=== PATIENT | female | born 1960 | race American Indian/Alaskan Native ===

== ENCOUNTER 2016-11-12 06:39 | Day surgery (SDC) | payer OTHER ==
[2016-11-12] MEDS ORDERED: Lactated Ringers 1,000 ML IV SCH (07:00)
[2016-11-12] MEDS ORDERED: Sodium Chloride 0.9% 10 ML Syringe FLUSH PRN (07:00)
[2016-11-12] MEDS ORDERED: Propofol 200 MG/20 ML SDV IV ONE (08:00)
--- NOTE | 2016-11-12 08:27 | PCM.OPNOTE ---
- General Post-Op/Procedure Note Date of Surgery/Procedure: 11/12/16 Operative Procedure(s): c scope Findings: asc. colon polyp internal hemorrhoids Pre Op Diagnosis: bleeding per rectum Post-Op Diagnosis: asc. colon polyp. internal hemorrhoids Anesthesia Technique: TRAVIS Primary Surgeon: Jimenez Poe Anesthesia Provider: Jeanmarie Mejias Pathology: colon polyp Complications: None Condition: Good Free Text/Narrative:: see dictation
--- NOTE | 2016-11-12 09:22 | OR ---
DATE OF OPERATION: 11/12/2016 SURGEON: Jimenez Poe MD PROCEDURE PERFORMED: Colonoscopy with cold forceps biopsy. PREOPERATIVE DIAGNOSIS: Bright red blood per rectum. POSTOPERATIVE DIAGNOSIS: Internal hemorrhoids and ascending colon polyp. INDICATIONS FOR PROCEDURE: This is a 56-year-old white female, who is referred with the above-mentioned complaints. She was offered and accepted colonoscopy. DESCRIPTION OF OPERATION: After an excellent IV sedation was administered, digital rectal exam was performed. No marked abnormality was noted. The flexible colonoscope was inserted and advanced to the cecum without difficulty. The prep was excellent. The following findings were noted. Ascending colon, a small 4 mm polyp, biopsied with cold biopsy forceps and sent for permanent. Transverse colon, unremarkable. Descending colon, unremarkable. Sigmoid and rectum unremarkable. The scope was retroflexed at the anus, and she does have internal hemorrhoids, which appeared to be the cause of her bleeding. The colon was deflated, as the scope was removed. The patient tolerated the procedure well and was taken to recovery room in good condition. /[id number] /NICL
[2016-11-12 09:27] VITALS: BP 121/74
== END 2016-11-12 09:56 | disposition home or self-care (01) ==
LOC: FB.SDS 06:39
PROVIDERS: ATTEND Surgery
DX: K64.8 Other hemorrhoids (principal); D12.2 Benign neoplasm of ascending colon; E78.4 Other hyperlipidemia; K21.9 Gastro-esophageal reflux disease without esophagitis; E11.9 Type 2 diabetes mellitus without complications; I51.9 Heart disease, unspecified; Z87.891 Personal history of nicotine dependence; Z79.84 Long term (current) use of oral hypoglycemic drugs; Z79.899 Other long term (current) drug therapy; Z88.0 Allergy status to penicillin; Z91.040 Latex allergy status; Z88.8 Allergy status to other drugs, medicaments and biological substances
CPT/HCPCS: 45380; 82962; 88305; J2704; J7120

== ENCOUNTER 2017-01-30 19:58 | Emergency (ER) | payer OTHER ==
[2017-01-30] MEDS ORDERED: methylPREDNISolone Sodium Succinate 125 MG/2 ML SDV IM ONE (20:37)
[2017-01-30] MEDS ORDERED: diphenhydrAMINE 50 MG/ML SDV IM ONE (20:37)
[2017-01-30 20:40] VITALS: BP 153/67
--- NOTE | 2017-01-31 01:22 | ER ---
DATE SEEN: 01/30/2017 HISTORY OF PRESENT ILLNESS: The patient is a 56-year-old female who says she was at the barber about 4 hours ago then she got bit by an insect. It is unclear where the bite was or what the insect was, but she developed swelling around her face. She has never had a reaction response like this in the past. She does not have allergies environmentally or to insect bites. She denies any shortness of breath or any difficulty swallowing. Did take [id number] antihistamine, which seemed to help her little bit. ALLERGIES: Penicillin, latex. MEDICATIONS: 1. Estrogen. 2. Flexeril. 3. Plavix. 4. Aspirin. 5. Metoprolol. 6. Cozaar. 7. Glucotrol. 8. Atorvastatin. 9. Norvasc. 10.Glucophage. PAST MEDICAL HISTORY: Diabetes, hypertension. REVIEW OF SYSTEMS: CONSTITUTIONAL: No fever. RESPIRATORY: No shortness of breath. PHYSICAL EXAMINATION: VITAL SIGNS: Temp 36.8, pulse 76, blood pressure 115/67, respiratory rate 18, 99% on room air. GENERAL: She is in no apparent acute distress. HEENT: TMs are clear. Pupils are equal, round, and reactive to light. Extraocular motions intact. Oropharyngeal region is clear. NECK: Supple. No lymphadenopathy. She does have some puffiness in her maxillary region. LUNGS: Clear to auscultation. HEART: Regular rate and rhythm. ABDOMEN: Soft. EMERGENCY DEPARTMENT COURSE: Benadryl 50 mg IM, Solu-Medrol 125 mg IM. ASSESSMENT: Potential allergic reaction. PLAN: Continue antihistamine for the next 7 days, avoid any new exposures. /[id number] RERE/EFREN
== END 2017-01-30 20:55 | disposition home or self-care (01) ==
LOC: FB.ED 19:58
DX: T78.40XA Allergy, unspecified, initial encounter (principal); I10 Essential (primary) hypertension; E11.9 Type 2 diabetes mellitus without complications; Z88.0 Allergy status to penicillin; Z91.040 Latex allergy status
CPT/HCPCS: 96372; 99282; J1200; J2930

== ENCOUNTER 2017-02-08 06:58 | Emergency (ER) | payer OTHER ==
--- NOTE | 2017-02-08 07:33 | EDM.PDOC ---
ED HPI GENERAL MEDICAL PROBLEM - General Chief Complaint: Chest Pain Stated Complaint: CHEST PAIN Time Seen by Provider: 02/08/17 07:00 Source of Information: Reports: Patient History Limitations: Reports: No Limitations - History of Present Illness INITIAL COMMENTS - FREE TEXT/NARRATIVE: c/o intermittent CP x 11h since 8 PM last night has had a few seconds of sharp left upper chest pain every 15 min x last 11h, slept 5h last night, no radiation, no n/v, no sob, not associated with activity , otherwise feels fine smoked 1 ppd until 2y ago had SOB and CP with exertion 1y ago and had EST 12/06 with placement of stents x 4, denies [place], taking her meds PCP Dr Mistry, cardiology Jj DALE in [place] with [facility], last seen by Carlos 2w ago, Plavix stopped 2w ago EKG today with LVH, SR 65, ID [id number], ST flattening in V6, I, AVL chest- left Pain Score (Numeric/FACES): 8 - Related Data Allergies Allergy/AdvReac Type Severity Reaction Status Date / Time Penicillins Allergy Unknown unknown Verified 02/08/17 07:24 Latex, Natural Rubber Allergy Hives Verified 02/08/17 07:24 Home Meds: Home Meds Acetaminophen [Acetaminophen Extra Strength] 500 mg PO DAILY PRN 11/11/16 [ History] metFORMIN [Glucophage] 1,000 mg PO BIDMEALS 11/11/16 [History] Aspirin [Halfprin] 81 mg PO DAILY 11/12/16 [History] Estrogen,Con/M-Progest Acet [Premphase 0.625-5 MG] 1 tab PO DAILY 11/12/16 [ History] Losartan [Cozaar] 100 mg PO DAILY 11/12/16 [History] Metoprolol Tartrate 12.5 mg PO DAILY 11/12/16 [History] amLODIPine [Norvasc] 2.5 mg PO DAILY 11/12/16 [History] atorvaSTATin Calcium [Atorvastatin Calcium] 80 mg PO DAILY 11/12/16 [History] glipiZIDE [Glucotrol] 5 mg PO DAILY 11/12/16 [History] Clopidogrel [Plavix] 75 mg PO DAILY 02/08/17 [History] Past Medical History Cardiovascular History: Reports: Stents Gastrointestinal History: Reports: GERD 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: Endocrine/Metabolic History: Reports: Diabetes, Type II, Obesity/BMI 30+ Social & Family History - Tobacco Use Smoking Status *Q: Never Smoker Used Tobacco, but Quit: Yes Month Tobacco Last Used: 1 1/2 YEARS AGO Second Hand Smoke Exposure: No - Caffeine Use Caffeine Use: Reports: Coffee, Soda - Recreational Drug Use Recreational Drug Use: No ED ROS GENERAL - Review of Systems Review Of Systems: See Below Constitutional: Reports: No Symptoms HEENT: Reports: No Symptoms Respiratory: Reports: No Symptoms Cardiovascular: Reports: Chest Pain Endocrine: Reports: No Symptoms GI/Abdominal: Reports: No Symptoms : Reports: No Symptoms Musculoskeletal: Reports: No Symptoms Skin: Reports: No Symptoms Neurological: Reports: No Symptoms Psychiatric: Reports: No Symptoms Hematologic/Lymphatic: Reports: No Symptoms Immunologic: Reports: No Symptoms ED EXAM, GENERAL - Physical Exam Exam: See Below Exam Limited By: No Limitations General Appearance: Alert, WD/WN, No Apparent Distress Ears: Normal External Exam, Hearing Grossly Normal Ear Exam: Bilateral Ear: Auricle Normal Nose: Normal Inspection, Normal Mucosa, No Blood Throat/Mouth: Normal Inspection, Normal Lips, Normal Voice, No Airway Compromise Head: Atraumatic, Normocephalic Neck: Normal Inspection, Supple, Non-Tender, Full Range of Motion Respiratory/Chest: No Respiratory Distress, Lungs Clear, Normal Breath Sounds, No Accessory Muscle Use, Chest Non-Tender Cardiovascular: Regular Rate, Rhythm, No Edema, No Gallop, No JVD, No Rub, Other (2/6 DALIA at LSB) GI/Abdominal: Soft, Non-Tender, No Organomegaly, No Distention, No Mass Back Exam: Normal Inspection, Full Range of Motion, NT Extremities: Normal Inspection, Normal Range of Motion, Non-Tender, No Pedal Edema, Other (turgor wnl) Neurological: Alert, Oriented, CN II-XII Intact, Normal Cognition, No Motor/ Sensory Deficits Psychiatric: Normal Affect, Normal Mood Skin Exam: Warm, Dry, Intact, Normal Color, No Rash Lymphatic: No Adenopathy Course - Vital Signs Last Recorded V/S: Last Vital Signs Temp 36.6 C 02/08/17 07:00 Pulse 67 02/08/17 07:00 Resp 15 02/08/17 08:30 BP 135/65 02/08/17 08:30 Pulse Ox 100 02/08/17 08:30 - Orders/Labs/Meds Orders: Active Orders 24 hr Category Date Time Status Chest 2V [CR] Stat Exams 02/08/17 07:27 Taken EKG 12 Lead [EK] Routine Ther 02/08/17 07:00 Ordered Labs: Laboratory Tests 02/08/17 02/08/17 02/08/17 Range/Units 07:34 07:34 07:34 WBC 5.7 (4.5-12.0) X10-3/uL RBC 4.11 (3.23-5.20) x10(6)uL Hgb 12.5 (11.5-15.5) g/dL Hct 36.8 (30.0-51.3) % MCV 89.6 (80-96) fL MCH 30.3 (27.7-33.6) pg MCHC 33.9 (32.2-35.4) g/dL RDW 13.5 (11.5-15.5) % Plt Count 198 (125-369) X10(3)uL MPV 8.1 (7.4-10.4) fL Neut % (Auto) 61.9 (46-82) % Lymph % (Auto) 27.0 (13-37) % [place] % (Auto) 5.5 (4-12) % Eos % (Auto) 5 (1.0-5.0) % Baso % (Auto) 1 (0-2) % Neut # (Auto) 3.6 (1.6-8.3) # Lymph # (Auto) 1.5 (0.6-5.0) # [place] # (Auto) 0.3 (0.0-1.3) # Eos # (Auto) 0.3 (0.0-0.8) # Baso # (Auto) 0.0 (0.0-0.2) # Sodium 140 (135-145) mmol/L Potassium 4.1 (3.5-5.3) mmol/L Chloride 107 (100-110) mmol/L Carbon Dioxide 25 (23-29) mmol/L BUN 11 (5-20) mg/dL Creatinine 0.6 (0.6-1.3) mg/dL Est Cr Clr Drug Dosing 95.68 mL/min Estimated GFR (MDRD) > 60 (>60) BUN/Creatinine Ratio 18.3 (9-20) Glucose 124 H (80-116) mg/dL Calcium 8.8 (8.6-10.2) mg/dL Total Bilirubin 0.5 (0.1-1.3) mg/dL AST 14 (5-27) IU/L ALT 15 (14-26) IU/L Alkaline Phosphatase 60 (56-112) IU/L Troponin I < 0.01 L (0.02-0.06) NG/ML B-Natriuretic Peptide (0-100) pg/mL Total Protein 6.9 (6.0-8.0) g/dL Albumin 3.8 (3.5-5.2) g/dL Globulin 3.1 g/dL Albumin/Globulin Ratio 1.2 / Range/Units 07:34 WBC (4.5-12.0) X10-3/uL RBC (3.23-5.20) x10(6)uL Hgb (11.5-15.5) g/dL Hct (30.0-51.3) % MCV (80-96) fL MCH (27.7-33.6) pg MCHC (32.2-35.4) g/dL RDW (11.5-15.5) % Plt Count (125-369) X10(3)uL MPV (7.4-10.4) fL Neut % (Auto) (46-82) % Lymph % (Auto) (13-37) % [place] % (Auto) (4-12) % Eos % (Auto) (1.0-5.0) % Baso % (Auto) (0-2) % Neut # (Auto) (1.6-8.3) # Lymph # (Auto) (0.6-5.0) # [place] # (Auto) (0.0-1.3) # Eos # (Auto) (0.0-0.8) # Baso # (Auto) (0.0-0.2) # Sodium (135-145) mmol/L Potassium (3.5-5.3) mmol/L Chloride (100-110) mmol/L Carbon Dioxide (23-29) mmol/L BUN (5-20) mg/dL Creatinine (0.6-1.3) mg/dL Est Cr Clr Drug Dosing mL/min Estimated GFR (MDRD) (>60) BUN/Creatinine Ratio (9-20) Glucose (80-116) mg/dL Calcium (8.6-10.2) mg/dL Total Bilirubin (0.1-1.3) mg/dL AST (5-27) IU/L ALT (14-26) IU/L Alkaline Phosphatase (56-112) IU/L Troponin I (0.02-0.06) NG/ML B-Natriuretic Peptide 8 (0-100) pg/mL Total Protein (6.0-8.0) g/dL Albumin (3.5-5.2) g/dL Globulin g/dL Albumin/Globulin Ratio - Re-Assessments/Exams Free Text/Narrative Re-Assessment/Exam: 02/08/17 09:23 09:23 d/w Dr Mazariegos technical education teacher workers compensation manager for [facility], he recommended a stress test today either locally or in [place], d/w Dr Yanez technical education teacher for [facility], he is not able to do EST at hospital altho did make arrangements to do one in the clinic at 1:15 PM this afternoon. Labs neg, pt sxs free in ED, pt and her sister agree to plan and will return to ED if sxs return. Departure - Departure Time of Disposition: 09:25 Disposition: Home, Self-Care 01 Condition: Good Clinical Impression: Chest pain of uncertain etiology Instructions: Exercise Stress Electrocardiogram, [id number] Referrals: Richa Mistry MD [Primary Care Provider] - Forms: ED Department Discharge Additional Instructions: Go to [facility] in [facility] at 1245 TODAY FOR STRESS TEST. Return to ED if chest pain gets worse. - Problem List & Annotations (1) Chest pain SNOMED Code(s): 22753848 Code(s): R07.9 - CHEST PAIN, UNSPECIFIED Status: Acute Current Visit: Yes - Problem List Review Problem List Initiated/Reviewed/Updated: Yes - My Orders Last 24 Hours: My Active Orders 02/08/17 07:00 EKG 12 Lead [EK] Routine 02/08/17 07:27 Chest 2V [CR] Stat - Assessment/Plan Last 24 Hours: My Active Orders 02/08/17 07:00 EKG 12 Lead [EK] Routine 02/08/17 07:27 Chest 2V [CR] Stat
[2017-02-08 09:38] VITALS: BP 149/68
--- NOTE | 2017-02-10 14:03 | CR ---
INDICATION: Chest pain. History of coronary artery disease. CHEST, PA AND LATERAL VIEWS: FINDINGS: No comparison imaging. There appears to be some scalloping or eventration of the dome of the right hemidiaphragm. The patient is of larger body habitus. There has been a previous cholecystectomy. As visualized, lungs and pleural spaces are clear. Heart size is at the upper limits of normal. No CHF. Mediastinal contours are otherwise normal. There is mild scoliosis deformity thoracic spine curved convex right. There is some generalized degenerative endplate change and spurring throughout the thoracic spine. There are mild compression deformities mid thoracic spine region, none of which look acute. IMPRESSION: No acute abnormality in the chest. MTDD
== END 2017-02-08 09:25 | disposition home or self-care (01) ==
LOC: FB.ED 06:58
DX: R07.9 Chest pain, unspecified (principal); K21.9 Gastro-esophageal reflux disease without esophagitis; E11.9 Type 2 diabetes mellitus without complications; E66.9 Obesity, unspecified; Z88.0 Allergy status to penicillin; Z91.040 Latex allergy status; Z79.899 Other long term (current) drug therapy
CPT/HCPCS: 36415; 71020; 80053; 83880; 84484; 85025; 93005; 99285

== ENCOUNTER 2019-12-13 20:22 | Emergency (ER) | payer OTHER ==
--- NOTE | 2019-12-13 20:59 | ER ---
DATE SEEN: 12/13/2019 CHIEF COMPLAINT: Foreign body, right ear. HISTORY OF PRESENT ILLNESS: A 59-year-old who complains that she had a piece of hearing aid stuck in her right ear. They tried to remove it at home, but with no success. This happened today. REVIEW OF SYSTEMS: All other systems noncontributory. PAST MEDICAL HISTORY: Hypertension. PHYSICAL EXAMINATION: GENERAL: Nontoxic. EARS: Right ear, there is a piece of foreign body, plastic, approximately 1 cm in size on the right canal. IMPRESSION: Foreign body, right ear. PLAN: I used an alligator forceps to remove it without difficulty. She was discharged with advice to hold off on another hearing aid or any foreign bodies in that ear for 24 hours. /[id number] LINDA/EFREN
[2019-12-13 22:12] VITALS: BP 157/76; PULSE 85
== END 2019-12-13 20:48 | disposition home or self-care (01) ==
LOC: FB.ED 20:22
DX: T16.1XXA Foreign body in right ear, initial encounter (principal); I10 Essential (primary) hypertension
CPT/HCPCS: 69200; 99282-25

== ENCOUNTER 2020-12-08 02:06 | Emergency (ER) | payer OTHER ==
--- NOTE | 2020-12-08 02:15 | EDM.PDOC ---
ED HPI GENERAL MEDICAL PROBLEM - General Stated Complaint: chest pain Time Seen by Provider: 12/08/20 02:13 Source of Information: Reports: Patient History Limitations: Reports: No Limitations - History of Present Illness INITIAL COMMENTS - FREE TEXT/NARRATIVE: 60 yo female with right sided chest pain since about 10 PM. [place] like indigestion,and slightly improved with tums and OTC PPI. No SOB. She has ah/o GERD,HTN,DM and CAD Right Upper Chest Pain Score (Numeric/FACES): 0 - Related Data Allergies Allergy/AdvReac Type Severity Reaction Status Date / Time Penicillins Allergy Unknown unknown Verified 12/13/19 22:09 Latex, Natural Rubber Allergy Hives Verified 12/13/19 22:09 Home Meds: Home Meds Acetaminophen [Acetaminophen Extra Strength] 500 mg PO DAILY PRN 11/11/16 [History] metFORMIN [Glucophage] 1,000 mg PO DAILY 11/11/16 [History] Aspirin [Halfprin] 81 mg PO DAILY 11/12/16 [History] Estrogen,Con/M-Progest Acet [Premphase 0.625-5 MG] 1 tab PO DAILY 11/12/16 [History] Losartan [Cozaar] 100 mg PO DAILY 11/12/16 [History] Metoprolol Tartrate 12.5 mg PO BID 11/12/16 [History] amLODIPine [Norvasc] 10 mg PO DAILY 11/12/16 [History] atorvaSTATin Calcium [Atorvastatin Calcium] 80 mg PO DAILY 11/12/16 [History] glipiZIDE [Glucotrol] 5 mg PO BID 11/12/16 [History] Magnesium Oxide 400 mg PO DAILY 12/08/20 [History] Multivitamin 1 tab PO DAILY 12/08/20 [History] Past Medical History Cardiovascular History: Reports: High Cholesterol, Hypertension, Stents Other Cardiovascular History: 4 heart stents. Respiratory History: Reports: Other (See Below) Other Respiratory History: former smoker since 14 years old, quit 4 years ago. 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 Social & Family History - Family History Cardiac: Reports: [place] - Caffeine Use Caffeine Use: Reports: Coffee ED ROS GENERAL - Review of Systems Review Of Systems: Comprehensive ROS is negative, except as noted in HPI. ED EXAM, GENERAL - Physical Exam Exam: See Below Exam Limited By: No Limitations General Appearance: Alert, WD/WN, No Apparent Distress Ears: Normal External Exam Nose: Normal Inspection Throat/Mouth: Normal Inspection Head: Atraumatic Neck: Normal Inspection Respiratory/Chest: No Respiratory Distress, Lungs Clear, No Accessory Muscle Use Cardiovascular: Normal Peripheral Pulses, Regular Rate, Rhythm, No Edema GI/Abdominal: Soft Back Exam: Normal Inspection Extremities: Normal Inspection Neurological: Alert, Oriented, CN II-XII Intact Psychiatric: Normal Affect Skin Exam: Warm Course - Vital Signs Last Recorded V/S: Last Vital Signs Temp 98.0 F 12/08/20 02:36 Pulse 75 12/08/20 04:00 Resp 18 12/08/20 04:00 BP 137/61 12/08/20 04:00 Pulse Ox 99 12/08/20 04:00 - Orders/Labs/Meds Labs: Laboratory Tests 12/08/20 12/08/20 12/08/20 Range/Units 02:18 02:18 02:18 WBC 8.1 (3.0-10.3) x10-3/uL RBC 4.28 (3.60-5.20) x10(6)uL Hgb 13.1 (11.4-15.5) g/dL Hct 39.3 (34.2-48.2) % MCV 91.9 (76.7-100.5) fL MCH 30.6 (23.9-33.9) pg MCHC 33.3 (31.9-34.8) g/dL RDW 13.7 (12.3-16.5) % Plt Count 221 (151-488) x10(3)uL MPV 8.1 (7.1-12.4) fL Neut % (Auto) 62.6 (30.8-76.2) % Lymph % (Auto) 25.5 (18.4-52.1) % [place] % (Auto) 7.2 (4.4-15.7) % Eos % (Auto) 4.0 (0.6-8.1) % Baso % (Auto) 0.7 (0.2-1.5) % Neut # (Auto) 5.1 (1.5-6.3) x10-3/uL Lymph # (Auto) 2.1 (1.0-4.4) x10-3/uL [place] # (Auto) 0.6 (0.3-1.0) x10-3/uL Eos # (Auto) 0.3 (0.0-0.8) x10-3/uL Baso # (Auto) 0.1 (0.0-0.1) x10-3/uL D-Dimer, Quantitative 0.70 H (0.0-0.59) mg/LFEU Sodium 142 (135-145) mmol/L Potassium 3.9 (3.5-5.3) mmol/L Chloride 105 (100-110) mmol/L Carbon Dioxide 29 (21-32) mmol/L BUN 18 (7-18) mg/dL Creatinine 0.8 (0.55-1.02) mg/dL Est Cr Clr Drug Dosing TNP Estimated GFR (MDRD) > 60 (>60) BUN/Creatinine Ratio 22.5 H (9-20) Glucose 144 H (80-116) mg/dL Calcium 9.0 (8.6-10.2) mg/dL Total Bilirubin 0.3 (0.1-1.3) mg/dL AST 17 (5-25) IU/L ALT 43 H (12-36) U/L Alkaline Phosphatase 73 (56-112) IU/L Troponin I (4.0-60.3) pg/mL Total Protein 7.6 (6.0-8.0) g/dL Albumin 3.7 (3.2-4.6) g/dL Globulin 3.9 g/dL Albumin/Globulin Ratio 1.0 SARS-CoV-2 RNA (VIOLETA) (NEGATIVE) 12/08/20 12/08/20 Range/Units 02:18 03:16 WBC (3.0-10.3) x10-3/uL RBC (3.60-5.20) x10(6)uL Hgb (11.4-15.5) g/dL Hct (34.2-48.2) % MCV (76.7-100.5) fL MCH (23.9-33.9) pg MCHC (31.9-34.8) g/dL RDW (12.3-16.5) % Plt Count (151-488) x10(3)uL MPV (7.1-12.4) fL Neut % (Auto) (30.8-76.2) % Lymph % (Auto) (18.4-52.1) % [place] % (Auto) (4.4-15.7) % Eos % (Auto) (0.6-8.1) % Baso % (Auto) (0.2-1.5) % Neut # (Auto) (1.5-6.3) x10-3/uL Lymph # (Auto) (1.0-4.4) x10-3/uL [place] # (Auto) (0.3-1.0) x10-3/uL Eos # (Auto) (0.0-0.8) x10-3/uL Baso # (Auto) (0.0-0.1) x10-3/uL D-Dimer, Quantitative (0.0-0.59) mg/LFEU Sodium (135-145) mmol/L Potassium (3.5-5.3) mmol/L Chloride (100-110) mmol/L Carbon Dioxide (21-32) mmol/L BUN (7-18) mg/dL Creatinine (0.55-1.02) mg/dL Est Cr Clr Drug Dosing Estimated GFR (MDRD) (>60) BUN/Creatinine Ratio (9-20) Glucose (80-116) mg/dL Calcium (8.6-10.2) mg/dL Total Bilirubin (0.1-1.3) mg/dL AST (5-25) IU/L ALT (12-36) U/L Alkaline Phosphatase (56-112) IU/L Troponin I < 4.0 L (4.0-60.3) pg/mL Total Protein (6.0-8.0) g/dL Albumin (3.2-4.6) g/dL Globulin g/dL Albumin/Globulin Ratio SARS-CoV-2 RNA (VIOLETA) Negative (NEGATIVE) Meds: Medications Discontinued Medications Generic Name Dose Route Start Last Admin Trade Name Freq PRN Reason Stop Dose Admin Iopamidol 80 ml 12/08/20 02:54 12/08/20 03:20 Iopamidol 755 Mg/Ml 100 Ml Bottle IV 04/18/21 02:55 80 ml . DIRECTED ONE Administration Departure - Departure Time of Disposition: 19:26 Disposition: Home, Self-Care 01 Condition: Good Clinical Impression: Chest pain Instructions: Nonspecific Chest Pain, Adult Referrals: PCP,None [Primary Care Provider] - Forms: ED Department Discharge Additional Instructions: do not take your metformin for 48 hours. - Problem List & Annotations (1) Chest pain of uncertain etiology SNOMED Code(s): 31492199 Code(s): R07.89 - OTHER CHEST PAIN Status: Acute - Problem List Review Problem List Initiated/Reviewed/Updated: Yes - Assessment/Plan Plan: CT chest is negative. I recommend follow up as an outpatient
[2020-12-08] MEDS ORDERED: Iopamidol 755 Mg/ML 100 ML Bottle IV ONE (02:54)
[2020-12-08 05:46] VITALS: BP 137/61; PULSE 75
--- NOTE | 2020-12-09 10:58 | CR ---
INDICATION: Chest pain. CHEST, ONE VIEW: An AP upright portable view of the chest was obtained 12/08/20 and compared with 02/08/17 and 11/22/08. The heart did not appear grossly enlarged but may be at the upper limits of normal in size. The aorta is mildly tortuous with suggestion of minimal calcification at the arch. Overlying EKG leads are noted. Degenerative change is noted in the mid to lower thoracic spine. A definite active infiltrate or effusion was not identified. Exogenous obesity is noted. IMPRESSION: 1. No definite acute process. 2. ASD aorta/possible ASHD. 3. Exogenous obesity. MTDD
--- NOTE | 2020-12-11 19:40 | PCM.EKG ---
#1 Interpretation EKG Date: 12/08/20 Rhythm: NSR [place]: Normal Comparison: No Change
== END 2020-12-08 04:32 | disposition home or self-care (01) ==
LOC: FB.ED 02:06
DX: R07.9 Chest pain, unspecified (principal); E78.00 Pure hypercholesterolemia, unspecified; I10 Essential (primary) hypertension; E11.9 Type 2 diabetes mellitus without complications; E66.9 Obesity, unspecified; Z20.822 Contact with and (suspected) exposure to COVID-19; Z88.0 Allergy status to penicillin; Z91.040 Latex allergy status; Z79.82 Long term (current) use of aspirin; Z79.84 Long term (current) use of oral hypoglycemic drugs; Z79.899 Other long term (current) drug therapy; Z87.891 Personal history of nicotine dependence
CPT/HCPCS: 36415; 71045; 71275; 80053; 84484; 85025; 85379; 93005; 99285-25; Q9967; U0002

== ENCOUNTER 2021-03-14 18:02 | Emergency (ER) | payer OTHER ==
[2021-03-14 18:31] VITALS: BP 141/74; PULSE 78
--- NOTE | 2021-03-14 19:07 | EDM.PDOC ---
ED HPI GENERAL MEDICAL PROBLEM - General Stated Complaint: LEFT LEG SWELLING Time Seen by Provider: 03/14/21 18:10 Source of Information: Reports: Patient History Limitations: Reports: No Limitations - History of Present Illness INITIAL COMMENTS - FREE TEXT/NARRATIVE: c/o leg swell pt works at [email or web address], in maintenance department, on her feet all day since at [facility] at [place] 2w ago for leg swell, told to limit salt and elevate legs which she has done swelling has continued, no pain had stents x 4 5y ago, 2 stents stopped working (based on chemical stress test) and she had 2 more stents placed 2m ago at 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, has f/u apt with her next moth does treadmill for 30 min 5d/w, no increase swell after treadmill or 8h of work (on feet) no f/c/d - Related Data Allergies Allergy/AdvReac Type Severity Reaction Status Date / Time Penicillins Allergy Unknown unknown Verified 12/13/19 22:09 Latex, Natural Rubber Allergy Hives Verified 12/13/19 22:09 Home Meds: Home Meds Acetaminophen [Acetaminophen Extra Strength] 500 mg PO DAILY PRN 11/11/16 [History] metFORMIN [Glucophage] 1,000 mg PO DAILY 11/11/16 [History] Aspirin [Halfprin] 81 mg PO DAILY 11/12/16 [History] Estrogen,Con/M-Progest Acet [Premphase 0.625-5 MG] 1 tab PO DAILY 11/12/16 [History] Losartan [Cozaar] 100 mg PO DAILY 11/12/16 [History] Metoprolol Tartrate 12.5 mg PO BID 11/12/16 [History] amLODIPine [Norvasc] 10 mg PO DAILY 11/12/16 [History] atorvaSTATin Calcium [Atorvastatin Calcium] 80 mg PO DAILY 11/12/16 [History] glipiZIDE [Glucotrol] 5 mg PO BID 11/12/16 [History] Magnesium Oxide 400 mg PO DAILY 12/08/20 [History] Multivitamin 1 tab PO DAILY 12/08/20 [History] Furosemide 20 mg PO ASDIRECTED #20 tablet 03/14/21 [Rx] Past Medical History Cardiovascular History: Reports: High Cholesterol, Hypertension, Stents Other Cardiovascular History: 4 heart stents. Respiratory History: Reports: Other (See Below) Other Respiratory History: former smoker since 14 years old, quit 4 years ago. Gastrointestinal History: Reports: GERD EDITING INTERN History: Reports: Endocrine/Metabolic History: Reports: Diabetes, Type II, Obesity/BMI 30+, Other (See Below) Other Endocrine/Metabolic History: on metformin 1000mg BID. Social & Family History - Family History Cardiac: Reports: ND - Caffeine Use Caffeine Use: Reports: Coffee ED ROS GENERAL - Review of Systems Review Of Systems: See Below Constitutional: Reports: No Symptoms HEENT: Reports: No Symptoms Respiratory: Reports: No Symptoms Cardiovascular: Reports: Edema Endocrine: Reports: No Symptoms GI/Abdominal: Reports: No Symptoms : Reports: No Symptoms Musculoskeletal: Reports: No Symptoms Skin: Reports: No Symptoms Neurological: Reports: No Symptoms Psychiatric: Reports: No Symptoms Hematologic/Lymphatic: Reports: No Symptoms Immunologic: Reports: No Symptoms ED EXAM, GENERAL - Physical Exam Exam: See Below Exam Limited By: No Limitations General Appearance: Alert, WD/WN, No Apparent Distress Ears: Hearing Grossly Normal Nose: Normal Inspection Throat/Mouth: Normal Inspection, Normal Voice, No Airway Compromise Head: Atraumatic, Normocephalic Neck: Normal Inspection, Supple, Non-Tender, Full Range of Motion Respiratory/Chest: No Respiratory Distress, Lungs Clear, Normal Breath Sounds, No Accessory Muscle Use Cardiovascular: Regular Rate, Rhythm, No Gallop (trace pretib edema on R, 1+ pretib edema on L, trace edema of thighs b/l, R calf 41 cm, L calf 42.5 cm, no red/warm/tender/cords, neg Homans) GI/Abdominal: Soft, Non-Tender, No Distention Back Exam: Normal Inspection, Full Range of Motion Extremities: Normal Inspection, Normal Range of Motion, Non-Tender Neurological: Alert, Oriented, CN II-XII Intact, Normal Cognition, No Motor/Sensory Deficits Psychiatric: Normal Affect, Normal Mood Skin Exam: Warm, Dry, Normal Color, No Rash, Other Lymphatic: No Adenopathy #1 Interpretation EKG Date: 03/14/21 Time: 18:40 Rhythm: NSR Rate (Beats/Min): 70 [place]: Normal P-Wave: Present QT: Normal Comparison: No Change (c/w 12-08-20) EKG Interpretation Comments: LVH present previously, no acute changes Course - Vital Signs Last Recorded V/S: Last Vital Signs Temp 37.2 C 03/14/21 18:11 Pulse 78 03/14/21 18:11 Resp 16 03/14/21 18:11 BP 141/74 H 03/14/21 18:11 Pulse Ox 97 03/14/21 18:11 - Orders/Labs/Meds Labs: Laboratory Tests 03/14/21 03/14/21 03/14/21 Range/Units 18:40 18:40 18:40 WBC 5.8 (3.0-10.3) x10-3/uL RBC 4.06 (3.60-5.20) x10(6)uL Hgb 12.5 (11.4-15.5) g/dL Hct 36.9 (34.2-48.2) % MCV 91.0 (76.7-100.5) fL MCH 30.7 (23.9-33.9) pg MCHC 33.7 (31.9-34.8) g/dL RDW 14.2 (12.3-16.5) % Plt Count 205 (151-488) x10(3)uL MPV 7.5 (7.1-12.4) fL Neut % (Auto) 63.7 (30.8-76.2) % Lymph % (Auto) 24.8 (18.4-52.1) % Gove % (Auto) 6.2 (4.4-15.7) % Eos % (Auto) 4.4 (0.6-8.1) % Baso % (Auto) 0.9 (0.2-1.5) % Neut # (Auto) 3.7 (1.5-6.3) x10-3/uL Lymph # (Auto) 1.4 (1.0-4.4) x10-3/uL Gove # (Auto) 0.4 (0.3-1.0) x10-3/uL Eos # (Auto) 0.3 (0.0-0.8) x10-3/uL Baso # (Auto) 0.1 (0.0-0.1) x10-3/uL D-Dimer, Quantitative (0.0-0.59) mg/LFEU Sodium 143 (135-145) mmol/L Potassium 4.1 (3.5-5.3) mmol/L Chloride 105 (100-110) mmol/L Carbon Dioxide 25 (21-32) mmol/L BUN 21 H (7-18) mg/dL Creatinine 1.0 (0.55-1.02) mg/dL Est Cr Clr Drug Dosing 52.49 mL/min Estimated GFR (MDRD) 56 L (>60) BUN/Creatinine Ratio 21.0 H (9-20) Glucose 182 H (80-116) mg/dL Calcium 8.8 (8.6-10.2) mg/dL Total Bilirubin 0.3 (0.1-1.3) mg/dL AST 15 D (5-25) IU/L ALT 39 H (12-36) U/L Alkaline Phosphatase 69 (56-112) IU/L C-Reactive Protein 0.2 L (0.5-0.9) mg/dL NT-Pro-B Natriuret Pep 60 (<=125) pg/mL Total Protein 7.6 (6.0-8.0) g/dL Albumin 3.6 (3.2-4.6) g/dL Globulin 4.0 g/dL Albumin/Globulin Ratio 0.9 // Range/Units 18:40 WBC (3.0-10.3) x10-3/uL RBC (3.60-5.20) x10(6)uL Hgb (11.4-15.5) g/dL Hct (34.2-48.2) % MCV (76.7-100.5) fL MCH (23.9-33.9) pg MCHC (31.9-34.8) g/dL RDW (12.3-16.5) % Plt Count (151-488) x10(3)uL MPV (7.1-12.4) fL Neut % (Auto) (30.8-76.2) % Lymph % (Auto) (18.4-52.1) % Gove % (Auto) (4.4-15.7) % Eos % (Auto) (0.6-8.1) % Baso % (Auto) (0.2-1.5) % Neut # (Auto) (1.5-6.3) x10-3/uL Lymph # (Auto) (1.0-4.4) x10-3/uL Gove # (Auto) (0.3-1.0) x10-3/uL Eos # (Auto) (0.0-0.8) x10-3/uL Baso # (Auto) (0.0-0.1) x10-3/uL D-Dimer, Quantitative 0.76 H (0.0-0.59) mg/LFEU Sodium (135-145) mmol/L Potassium (3.5-5.3) mmol/L Chloride (100-110) mmol/L Carbon Dioxide (21-32) mmol/L BUN (7-18) mg/dL Creatinine (0.55-1.02) mg/dL Est Cr Clr Drug Dosing mL/min Estimated GFR (MDRD) (>60) BUN/Creatinine Ratio (9-20) Glucose (80-116) mg/dL Calcium (8.6-10.2) mg/dL Total Bilirubin (0.1-1.3) mg/dL AST (5-25) IU/L ALT (12-36) U/L Alkaline Phosphatase (56-112) IU/L C-Reactive Protein (0.5-0.9) mg/dL NT-Pro-B Natriuret Pep (<=125) pg/mL Total Protein (6.0-8.0) g/dL Albumin (3.2-4.6) g/dL Globulin g/dL Albumin/Globulin Ratio Meds: Medications Discontinued Medications Generic Name Dose Route Start Last Admin Trade Name Freq PRN Reason Stop Dose Admin Enoxaparin Sodium 100 mg 03/14/21 19:54 Enoxaparin 100 Mg/1 Ml Syringe SUBCUT 03/14/21 19:55 ONETIME ONE Rivaroxaban 15 mg 03/15/21 18:00 Rivaroxaban 15 Mg Tab [facility]ar[facility] 15 mg 03/14/21 20:04 03/14/21 20:12 Rivaroxaban 15 Mg Tab PO [facility] mg [facility] Administration - Re-Assessments/Exams Free Text/Narrative Re-Assessment/Exam: 03/14/21 19:26 labs reviewed with pt, she was given a copy renal insuff is likely chronic (no comparison), no clinical evidence of CV/renal/hepatic concerns contributing to LE edema likely dependent edema low risk for DVT, yet is slightly high on d-dimer unable to obtain u/s tonight (Wed evening) 03/14/21 19:31 pt states she is going to [place] tomorrow morning, call placed to Sherri clinical leader who put ED physician on the line who did not know if u/s only test could be done, Sherri will check with bench lay out technician and get back with me 03/14/21 19:55 bench lay out technician requested pt to come to [facility] ED in [place] to register for outpt u/s between 8-9a Departure - Departure Time of Disposition: 20:00 Disposition: Home, Self-Care 01 Condition: Good Clinical Impression: Dependent edema, Elevated d-dimer - Discharge Information *PRESCRIPTION DRUG MONITORING PROGRAM REVIEWED*: Not Applicable *COPY OF PRESCRIPTION DRUG MONITORING REPORT IN PATIENT MARIAELENA: Not Applicable Prescriptions: Furosemide 20 mg PO ASDIRECTED #20 tablet Instructions: Edema, Deep Vein Thrombosis, Venous Thromboembolism Prevention Referrals: PCP,Not In Area [Primary Care Provider] - Forms: ED Department Discharge Additional Instructions: Go to [facility] Emergency Department between 8 and 9 AM tomorrow for registration for an outpatient ultrasound. The tire technician entered your name and order for a left lower extremity venous duplex doppler in their computer system. As a duplicate, give them the hand-written order as well. One hour after the test, call Dr Allen at [phone] at the Emergency Department at [facility] in [place] to get the test results. For swelling in your lower extremities, take furosemide 20 mg 1 tab every Wed, Wed and Wednesday. See your PCP in one for further recommendations. Sepsis Event Note (ED) - Evaluation Sepsis Screening Result: No Definite Risk
[2021-03-14] MEDS ORDERED: Enoxaparin 100 MG/1 ML Syringe SUBCUT ONE (19:54)
[2021-03-14] MEDS: Rivaroxaban 15 MG Tab PO SCH (20:12)
[2021-03-15] MEDS ORDERED: Rivaroxaban 15 MG Tab PO SCH (18:00)
== END 2021-03-14 20:18 | disposition home or self-care (01) ==
LOC: FB.ED 18:02
DX: R60.0 Localized edema (principal); R79.1 Abnormal coagulation profile; E78.00 Pure hypercholesterolemia, unspecified; I10 Essential (primary) hypertension; E11.9 Type 2 diabetes mellitus without complications; E66.9 Obesity, unspecified; Z68.38 Body mass index [BMI] 38.0-38.9, adult; Z87.891 Personal history of nicotine dependence; Z88.0 Allergy status to penicillin; Z91.040 Latex allergy status; Z79.82 Long term (current) use of aspirin; Z79.84 Long term (current) use of oral hypoglycemic drugs; Z79.899 Other long term (current) drug therapy
CPT/HCPCS: 36415; 80053; 83880; 85025; 85379; 86140; 93005; 99284; A9270

== ENCOUNTER 2021-10-03 08:32 | Day surgery (SDC) | payer OTHER ==
[2021-10-03] MEDS ORDERED: Midazolam 1 MG/ML 2 ML SDV IV ONE (08:33)
[2021-10-03] MEDS ORDERED: Propofol 200 MG/20 ML SDV IV ONE (08:33)
[2021-10-03] MEDS ORDERED: Ketamine 500 mg/10 ML MDV IV ONE (08:33)
[2021-10-03] MEDS ORDERED: Sodium Chloride 0.9% 10 ML Syringe FLUSH PRN (08:45)
[2021-10-03] MEDS ORDERED: Lactated Ringers 1,000 ML IV SCH (08:45)
[2021-10-03 10:32] VITALS: BP 126/73; PULSE 79
== END 2021-10-03 10:44 | disposition home or self-care (01) ==
LOC: MERGE 08:32 → FB.SDS 08:32
PROVIDERS: ATTEND Surgery
DX: R19.5 Other fecal abnormalities (principal); I10 Essential (primary) hypertension; E11.9 Type 2 diabetes mellitus without complications; K57.30 Diverticulosis of large intestine without perforation or abscess without bleeding; E78.00 Pure hypercholesterolemia, unspecified; Z79.82 Long term (current) use of aspirin; Z80.0 Family history of malignant neoplasm of digestive organs; Z79.899 Other long term (current) drug therapy; Z79.84 Long term (current) use of oral hypoglycemic drugs
CPT/HCPCS: 45378; 82947; J2250; J2704; J7120; 00811-QZ

== ENCOUNTER 2022-03-16 07:19 | Emergency (ER) | payer OTHER ==
[2022-03-16 08:25] VITALS: BP 122/64; PULSE 68
== END 2022-03-16 07:57 | disposition home or self-care (01) ==
LOC: FB.ED 07:19
DX: T16.2XXA Foreign body in left ear, initial encounter (principal); L30.9 Dermatitis, unspecified; I10 Essential (primary) hypertension; E11.9 Type 2 diabetes mellitus without complications; E66.9 Obesity, unspecified; Z68.34 Body mass index [BMI] 34.0-34.9, adult; Z88.0 Allergy status to penicillin; Z91.040 Latex allergy status; Z88.8 Allergy status to other drugs, medicaments and biological substances; Z79.899 Other long term (current) drug therapy; Z79.84 Long term (current) use of oral hypoglycemic drugs; Z79.82 Long term (current) use of aspirin; Z90.710 Acquired absence of both cervix and uterus
CPT/HCPCS: 99281; 99282

== ENCOUNTER 2022-03-27 12:43 | Emergency (ER) | payer OTHER ==
[2022-03-27] MEDS ORDERED: Sodium Chloride 0.9% 10 ML Syringe FLUSH PRN (13:04)
[2022-03-27] MEDS ORDERED: Aspirin 81 MG Tab.Chew PO STA (13:05)
[2022-03-27] MEDS ORDERED: Nitroglycerin 0.4 MG Tab.SL SL STA (13:05)
[2022-03-27 13:28] LABS: ESTIMATED GFR 72 mL/min (>60)
[2022-03-27 17:56] VITALS: BP 109/61; PULSE 77
== END 2022-03-27 14:25 | disposition home or self-care (01) ==
LOC: FB.ED 12:43
DX: R07.9 Chest pain, unspecified (principal); E86.0 Dehydration; E78.00 Pure hypercholesterolemia, unspecified; I25.10 Atherosclerotic heart disease of native coronary artery without angina pectoris; I10 Essential (primary) hypertension; K21.9 Gastro-esophageal reflux disease without esophagitis; E11.9 Type 2 diabetes mellitus without complications; Z88.0 Allergy status to penicillin; Z91.040 Latex allergy status; Z88.8 Allergy status to other drugs, medicaments and biological substances; Z79.82 Long term (current) use of aspirin; Z79.84 Long term (current) use of oral hypoglycemic drugs
CPT/HCPCS: 36415; 71045; 80053; 84484; 85025; 85610; 85730; 93005; 99285; A9270-GY